=== PATIENT | female | born 1985 | race Two or more races ===

== ENCOUNTER → 2016-11-11 | Day surgery (SDC) | payer OTHER ==
[~2016-11-11] MED LIST: KETOROLAC TROMETHAMINE 30 MG/ML (IVP) VIAL IV PUSH ONE; LACTATED RINGER'S 1000 ML INJ 1,000 ML ONE; MIDAZOLAM HCL 2 MG/2 ML VIAL ONE; ONDANSETRON HCL 4 MG/2 ML VIAL IV PUSH ONE; PROPOFOL 200 MG/20 ML AMP IV ONE; ceFAZolin INJ 1,000 MG VIAL ONE; oxyCODONE/ACETAMINOPHEN 5 MG/325 MG TAB ONE
--- NOTE | 2016-11-27 11:43 | TN ---
cc: IVAN HAJI DATE OF SURGERY 11/11/2016 PREOPERATIVE DIAGNOSIS Desires permanent sterility. POSTOPERATIVE DIAGNOSIS Desires permanent sterility. PROCEDURE Laparoscopic bilateral tubal ligation with Falope rings. SURGEON Ivan Haji MD ANESTHESIA General ESTIMATED BLOOD LOSS 30 cc COMPLICATIONS None FINDINGS The patient had a grossly normal uterus, fallopian tubes and ovaries. The upper abdominal organs were also normal as far as could be visualized. DESCRIPTION OF PROCEDURE The patient brought to the operating room and following general anesthesia, was placed in the dorsal lithotomy position. Her vagina, abdomen and perineum were prepped and draped. A HUMI catheter was placed into the uterus and the bladder was drained with a red rubber catheter. A 1 cm subumbilical skin incision was made. A Veress needle was inserted and 3 liters of CO2 was infused into the abdomen. The Veress needle was then removed and the laparoscope was placed without difficulty. A second puncture site was created under direct visualization. The findings were as noted above. The Falope ring applicator was loaded and a Falope ring was easily allow applied to the isthmic portion of each tube. Good portions of tube were noted to be present within each ring. There was no bleeding. Photos of all areas were taken. With no other pathology present, all instruments removed and the CO2 gas was allowed to escape. The incisions were then closed with a subcuticular 4-0 Vicryl stitch. The patient was taken to the recovery room in good condition with all counts correct. She will be discharged home when stable and alert to be followed up in one week in our office. Her discharge medication is Percocet. She is given instructions on physical activity and instructed to resume a regular diet as tolerated. Ivan Haji MD TGS/DJL /11:23 AM /11:31 AM
== END | disposition home or self-care (01) ==
LOC: ESDC 06:49
PROVIDERS: ATTEND Obstetrics & Gynecology
DX: Z30.2 Encounter for sterilization (principal)
CPT/HCPCS: 00851; 58671; J0690; J1885; J2250; J2405; J3010; J7120